=== PATIENT | male | born 1955 | race Two or more races ===

== ENCOUNTER 2025-02-18 09:54 | Inpatient (IN) | payer BC ==
[~2025-02-18] VITALS: Ht 182.9 cm; Wt 73.5 kg
[2025-02-18 10:49] LABS: PLATELET COUNT (AUTO) 211 K/uL (150-450); RED BLOOD CELL COUNT(AUTO) 3.52 MIL/uL (4.5-6.0); RED CELL DISTRIBUTION WIDTH 16.4 % (11.5-15.0); WHITE BLOOD COUNT (AUTO) 13.3 K/uL (4.3-11.0)
[2025-02-18] MEDS ORDERED: CHOL200026 PO (10:56)
[2025-02-18] MEDS: IV NS 0.9% 1,000 ML BAG IV ONE (11:00)
[2025-02-18] MEDS: CEFEPIME 1 GM in IV D5W 50 ML IV ONE (11:01)
[2025-02-18 11:06] LABS: LACTIC ACID 3.5 mmol/L (0.4-2.0)
[2025-02-18 11:11] LABS: CALCIUM, SERUM 8.1 mg/dL (8.5-10.1); CREATININE 1.3 mg/dL (0.6-1.3); SODIUM SERUM 139 mmol/L (136-145); UREA NITROGEN, BLOOD 15 mg/dL (7-18)
[2025-02-18 11:14] LABS: ASPARTATE AMINOTRANSFERASE 32 U/L (15-37); TOTAL PROTEIN, SERUM 6.8 g/dL (6.4-8.2)
[2025-02-18 11:17] LABS: INR 1.21 (0.91-1.10)
[2025-02-18] MEDS: VANCOMYCIN 1 GM in IV D5W 250 ML IV ONE (11:34)
[2025-02-18] MEDS: IV NS 0.9% 500 ML BAG IV ONE (12:50)
[2025-02-18] MEDS ORDERED: METRONIDAZOLE 500MG/ NS 100ML 100 ML IV ONE (15:37)
[2025-02-18] MEDS: FLAGYL/NS RTU 500 MG/100 ML PIGGYBACK IV ONE (15:40)
[2025-02-19] MEDS ORDERED: METRONIDAZOLE 500MG/ NS 100ML 500 MG in PREMIX 1 EA IV SCH (14:30)
[2025-02-19] MEDS: CEFEPIME 1 GM in IV D5W 50 ML IV SCH (14:33)
[2025-02-19] MEDS: VANCOMYCIN 1 GM in IV D5W 250 ML IV ONE (15:15)
[2025-02-19 15:25] LABS: PLATELET COUNT (AUTO) 198 K/uL (150-450); RED BLOOD CELL COUNT(AUTO) 3.88 MIL/uL (4.5-6.0); RED CELL DISTRIBUTION WIDTH 17.3 % (11.5-15.0); WHITE BLOOD COUNT (AUTO) 11.0 K/uL (4.3-11.0)
[2025-02-19] MEDS ORDERED: MORPHINE SULFATE INJ 2 MG/ML DISP.SYRIN IV PRN (15:30)
[2025-02-19] MEDS ORDERED: hydrALAZINE HCL IV 20 MG VIAL IV PRN (15:30)
[2025-02-19] MEDS ORDERED: DOSING PER PHARMACY-CEFEPIME IVPB XX PRN (15:30)
[2025-02-19] MEDS ORDERED: DOSING PER PHARMACY-VANCOMYCIN IV XX PRN (15:30)
[2025-02-19] MEDS ORDERED: ACETAMINOPHEN 325 MG TABLET PO PRN (15:30)
[2025-02-19 15:33] LABS: CALCIUM, SERUM 8.4 mg/dL (8.5-10.1); CREATININE 1.4 mg/dL (0.6-1.3); SODIUM SERUM 136 mmol/L (136-145); UREA NITROGEN, BLOOD 14 mg/dL (7-18)
[2025-02-19 15:44] LABS: LACTIC ACID 2.9 mmol/L (0.4-2.0)
[2025-02-19 16:00] VITALS: BP 125/78; TEMP 98.6; O2SAT 98
[2025-02-19 16:30] VITALS: BP 125/78; TEMP 98.6; O2SAT 98
[2025-02-19] MEDS: IV NS 0.9% 500 ML BAG IV ONE (19:37)
[2025-02-19 20:00] VITALS: BP 134/84; TEMP 99; O2SAT 99
[2025-02-19] MEDS: HEPARIN SODIUM, PORCINE 5000 UNITS/1 ML VIAL SQ SCH (20:08)
[2025-02-20] VITALS: BP 118/80; TEMP 98.6; O2SAT 99
[2025-02-20] MEDS ORDERED: CEFEPIME 1 GM VIAL ONE (01:13)
[2025-02-20] MEDS: CEFEPIME 2 GM in IV D5W 100 ML IV SCH (01:44)
[2025-02-20] MEDS: VANCOMYCIN 750 MG in IV D5W 250 ML IV SCH (02:21)
[2025-02-20 04:00] VITALS: BP 115/72; TEMP 97.9; O2SAT 98
[2025-02-20 06:42] LABS: PLATELET COUNT (AUTO) 116 K/uL (150-450); RED BLOOD CELL COUNT(AUTO) 3.14 MIL/uL (4.5-6.0); RED CELL DISTRIBUTION WIDTH 16.9 % (11.5-15.0); WHITE BLOOD COUNT (AUTO) 4.5 K/uL (4.3-11.0)
[2025-02-20 07:26] LABS: ASPARTATE AMINOTRANSFERASE 23.0 U/L (15-37); CALCIUM, SERUM 7.8 mg/dL (8.5-10.1); CREATININE 1.2 mg/dL (0.6-1.3); PHOSPHORUS 2.9 mg/dL (2.5-4.9); SODIUM SERUM 138.0 mmol/L (136-145); TOTAL PROTEIN, SERUM 5.9 g/dL (6.4-8.2); UREA NITROGEN, BLOOD 16.0 mg/dL (7-18)
[2025-02-20 08:00] VITALS: BP 104/67; TEMP 98; O2SAT 99
[2025-02-20 11:30] VITALS: BP 111/87; TEMP 98.1; O2SAT 100
[2025-02-20] MEDS: ENSURE ENLIVE 237 ML LIQUID (VANILLA) PO SCH (13:00)
[2025-02-20] MEDS: ONDANSETRON HCL/PF 4 MG/2 ML VIAL IVP PRN (15:27)
[2025-02-20 15:37] LABS: FIBRINOGEN ACTIVITY 227.0 Mg/dL (213-485); INR 1.15 (0.91-1.10)
[2025-02-20 15:46] LABS: IRON, SERUM 14.0 ug/dl (50-175)
[2025-02-20 16:00] VITALS: BP 108/80; TEMP 98.2; O2SAT 96; O2SAT 99
[2025-02-20 16:27] LABS: RHEUMATOID FACTOR SCREEN NEGATIVE (NEGATIVE)
[2025-02-20 20:00] VITALS: BP 121/87; TEMP 97.9; O2SAT 97
[2025-02-20] MEDS ORDERED: MEROPENEM 500MG/NS 50 ML PB IV ONE (21:35)
[2025-02-20] MEDS: MEROPENEM 1 G in IV NS 0.9% 100 ML IV ONE (21:39)
[2025-02-21] VITALS: BP 122/79; TEMP 97.9; O2SAT 99
[2025-02-21 00:09] LABS: OCCULT BLOOD STOOL POSITIVE (NEGATIVE)
[2025-02-21 04:00] VITALS: BP 115/77; TEMP 98.2; O2SAT 98
[2025-02-21 07:12] LABS: PLATELET COUNT (AUTO) 122 K/uL (150-450); RED BLOOD CELL COUNT(AUTO) 3.22 MIL/uL (4.5-6.0); RED CELL DISTRIBUTION WIDTH 16.6 % (11.5-15.0); WHITE BLOOD COUNT (AUTO) 4.6 K/uL (4.3-11.0)
[2025-02-21 07:32] LABS: CALCIUM, SERUM 8.0 mg/dL (8.5-10.1); CREATININE 1.2 mg/dL (0.6-1.3); PHOSPHORUS 2.7 mg/dL (2.5-4.9); SODIUM SERUM 138.0 mmol/L (136-145); UREA NITROGEN, BLOOD 15.0 mg/dL (7-18)
[2025-02-21 08:27] LABS: FIBRINOGEN ACTIVITY 224.0 Mg/dL (213-485); INR 1.18 (0.91-1.10)
[2025-02-21] MEDS: MEROPENEM 1 G in IV NS 0.9% 100 ML IV SCH (08:33)
[2025-02-21 08:46] VITALS: BP 117/74; TEMP 97.9; O2SAT 98
[2025-02-21 11:06] LABS: FOLIC ACID 6.3 ng/mL (>3.0)
[2025-02-21] MEDS: POTASSIUM CHLORIDE 20 MEQ TAB.PRT.SR PO SCH (11:33)
[2025-02-21 12:01] VITALS: BP 110/81; TEMP 98.4; O2SAT 96
[2025-02-21 12:06] LABS: IMMUNOGLOBULIN A, SERUM 352 mg/dL (61-437); IMMUNOGLOBULIN M, SERUM 217 mg/dL (20-172)
[2025-02-21] MEDS: MAGNESIUM OXIDE 400 MG TABLET PO ONE (12:33)
[2025-02-21] MEDS: SOD FERRIC GLUC 125 MG in IV NS 0.9% 100 ML IV SCH (14:06)
[2025-02-21 16:10] VITALS: BP 117/78; TEMP 97.5; O2SAT 98
[2025-02-21 23:10] LABS: HIV-1/2 ANTIBODY NON REACTIVE (NONREACTIVE)
[2025-02-22] MEDS: FAMOTIDINE/PF INJ 20 MG/2 ML VIAL IV ONE (00:55)
[2025-02-22 04:00] VITALS: BP 115/76; TEMP 98.4; O2SAT 98
[2025-02-22 07:11] LABS: FIBRINOGEN ACTIVITY 261.0 Mg/dL (213-485); INR 1.14 (0.91-1.10)
[2025-02-22 08:00] VITALS: BP 122/76; TEMP 98.1; O2SAT 100
[2025-02-22 08:07] LABS: FREE KAPPA LT CHAINS SERUM 93.7 mg/L (3.3-19.4); FREE LAMBDA LT CHAIN SERUM 99.2 mg/L (5.7-26.3); KAPPA/LAMBDA RATIO SERUM 0.94 (0.26-1.65)
[2025-02-22 08:20] LABS: CALCIUM, SERUM 8.8 mg/dL (8.5-10.1); CREATININE 1.2 mg/dL (0.6-1.3); PHOSPHORUS 2.5 mg/dL (2.5-4.9); SODIUM SERUM 139.0 mmol/L (136-145); UREA NITROGEN, BLOOD 18.0 mg/dL (7-18)
[2025-02-22 11:14] LABS: PLATELET COUNT (AUTO) 182 K/uL (150-450); RED BLOOD CELL COUNT(AUTO) 3.53 MIL/uL (4.5-6.0); RED CELL DISTRIBUTION WIDTH 16.7 % (11.5-15.0); WHITE BLOOD COUNT (AUTO) 7.3 K/uL (4.3-11.0)
[2025-02-22 12:00] VITALS: BP 123/78; TEMP 98.1; O2SAT 100
[2025-02-23 02:07] LABS: HEPATITIS B SURFACE AB (QUAL) Reactive (.)
[2025-02-23 15:08] LABS: *ANA ANTI-CENTROMERE B AB <0.2 AI (0.0-0.9); *ANA ANTI-DNA(DS) AB, QN <1 IU/mL (0-9); *ANA ANTI-JO-1 <0.2 AI (0.0-0.9); *ANA ANTICHROMATIN ANTIBODY <0.2 AI (0.0-0.9); *ANA RNP ANTIBODIES >8.0 AI (0.0-0.9); *ANA SJOGREN'S ANTI-SS-A 0.2 AI (0.0-0.9); *ANA SJOGREN'S ANTI-SS-B <0.2 AI (0.0-0.9); *ANAANTI-SCLERODERMA-70 AB <0.2 AI (0.0-0.9); *ANASMITH AB <0.2 AI (0.0-0.9)
[2025-02-24 14:07] LABS: BETA-2 MICROGLOBULIN, SERUM 4.9 mg/L (0.6-2.4)
== END 2025-02-22 16:57 | disposition short-term general hospital (02) | DRG 872 ==
LOC: ER 09:58 → TELE 02-19 15:37
PROVIDERS: ADMIT Internal Medicine; ATTEND Internal Medicine
DX: A41.51 Sepsis due to Escherichia coli [E. coli] (principal); N36.0 Urethral fistula; C90.01 Multiple myeloma in remission; N17.9 Acute kidney failure, unspecified; E87.20 Acidosis, unspecified; K76.6 Portal hypertension; N39.0 Urinary tract infection, site not specified; R65.20 Severe sepsis without septic shock; E87.6 Hypokalemia; D64.9 Anemia, unspecified; D69.6 Thrombocytopenia, unspecified; Z20.822 Contact with and (suspected) exposure to COVID-19; R62.7 Adult failure to thrive; E11.22 Type 2 diabetes mellitus with diabetic chronic kidney disease; I12.9 Hypertensive chronic kidney disease with stage 1 through stage 4 chronic kidney disease, or unspecified chronic kidney disease; N18.9 Chronic kidney disease, unspecified; Z92.3 Personal history of irradiation; Z98.890 Other specified postprocedural states; Z88.3 Allergy status to other anti-infective agents; Z79.899 Other long term (current) drug therapy; K52.9 Noninfective gastroenteritis and colitis, unspecified; B96.89 Other specified bacterial agents as the cause of diseases classified elsewhere; E88.09 Other disorders of plasma-protein metabolism, not elsewhere classified; K80.20 Calculus of gallbladder without cholecystitis without obstruction
CPT/HCPCS: 36415; 71045-TC; 80048-TC; 80053-TC; 80076-TC; 80202-TC; 82232; 82272-TC; 82607-TC; 82728-TC; 82784; 83540-TC; 83605-TC; 83735-TC; 83880; 84100-TC; 84155; 84165; 84443-TC; 84484-TC; 85025-TC; 85396; 85730-TC; 86225; 86235; 86334; 86431-TC; 86706; 86803; 87040-TC; 87186-TC; 87340; 87806; 93307-TC; 93970-TC; A4216; A4223; A6254; G0378; J0692; J1308; J1644; J2185; J2405; J2916; J3373; J3374; J7030; J7040; J7050; J7060